=== PATIENT | female | born 1985 | race Two or more races ===

== ENCOUNTER 2016-12-16 23:23 | Emergency (ER) | payer OTHER ==
[2016-12-17] MEDS ORDERED: IBUPROFEN 600 MG TABLET ONE (01:37)
[2016-12-17] MEDS ORDERED: DIAZEPAM 5 MG TABLET ONE (01:38)
== END 2016-12-17 01:56 | disposition home or self-care (01) ==
LOC: ED 23:23
DX: M43.6 Torticollis (principal)
CPT/HCPCS: 99283 ×2; A9270 ×2